=== PATIENT | male | born 1995 | race Caucasian/White ===

== ENCOUNTER 2017-05-27 14:36 | Emergency (ER) | payer MEDICAID ==
[~2017-05-27] VITALS: Wt 98.4 kg
[2017-05-27] MEDS ORDERED: KETOROLAC 30 MG INJ IV STA (15:48)
[2017-05-27] MEDS ORDERED: SOD CHLORIDE 0.9% 1,000 ML IV ONE (16:00)
[2017-05-27] MEDS ORDERED: DEXAMETHASONE 10 MG/ML 1 ML INJ IV ONE (16:00)
[2017-05-27 16:38] LABS: BASOPHILS % 0.2 % (0.0-2.0); EOSINOPHILS % 0.1 % (0.0-7.0); HEMATOCRIT 45.5 % (42.0-52.0); LYMPHOCYTES # 1.1 10^3/ul (0.8-2.9); LYMPHOCYTES % 6.6 % (15.0-51.0); MEAN CORPUSCULAR HEMOGLOBIN 28.1 pg (29.0-33.0); MEAN CORPUSCULAR VOLUME 85.2 fl (82.0-101.0); MONOCYTE # 1.3 10^3/ul (0.3-0.9); MONOCYTES % 8.2 % (0.0-11.0); NEUTROPHIL # 13.6 10^3/ul (1.6-7.5); NEUTROPHILS % 84.6 % (39.0-77.0); PLATELET COUNT 180 10^3/UL (140-415); RED BLOOD COUNT 5.34 10^6/ul (4.70-6.10); RED CELL DISTRIBUTION WIDTH 13.3 % (11.5-14.5)
[2017-05-27 17:11] LABS: CALCIUM 9.6 mg/dl (8.4-10.2); CREATININE 0.86 mg/dl (0.61-1.24); POTASSIUM 4.2 mmol/L (3.5-5.1)
[2017-05-27] MEDS ORDERED: IOHEXOL 300MG/ML 150 ML BTL ONE (17:38)
[2017-05-27] MEDS ORDERED: SOD CHLORIDE 0.9% 100 ML ONE (17:38)
--- NOTE | 2017-05-27 18:06 | RADRPT ---
AMENDMENT: 05/27/2017 6:53:20 PM David Briggs M.d Left peritonsillar abscess measures 2.6 x 2.5 x 1.6 cm. Findings were discussed with the patient's p hysician environmental engineering assistant. PROCEDURE: CT SCAN OF NECK WITH IV CONTRAST CLINICAL INDICATION: Throat pain unable to open mouth TECHNIQUE: Transaxial slices with IV contrast was obtained throughout the neck with IV contrast . A dditional sagittal and coronal reconstruction images were acquired. One of more of the following dos e reduction techniques were utilized: -automatic exposure control.-adjustment of the mA and/or kV ac cording to patient size. -Use of iterative reconstruction technique. Contrast: 100 cc Omnipaque-300 Radiation Dose: CTDI is 9.51 mGy. DLP is 252.08 mGy-cm. COMPARISON: None FINDINGS: S limited slices through the brain demonstrate normal enhancement of the vascular structures in base of brain. Posterior fossa brain stem appears unremarkable. Paranasal sinuses are clear. Prevertebra l soft tissues, nasopharynx is widely patent. Parotid, submandibular glands appear unremarkable. There is abnormal soft tissue density noted in the parapharyngeal space, more so on the left which i s obliterating the fossa of frozen malar. Low density areas noted within the soft tissue thickening suggestive of abscess, image 3 - 34. Thickening of the mucosa in the supraglottic region with low de nsity area suggestive of abscess, image 3 - 50. This is causing significant narrowing of the orophar ynx. Normal enhancement of the carotid arteries, jugular vein is seen with no significant anterior p osterior cervical triangle adenopathy noted. Base of tongue appears unremarkable. Submandibular lymp h nodes are seen. The glottis and infraglottic area appear unremarkable. Normal enhancement of the t hyroid gland and superior mediastinal vascular structures noted. IMPRESSION: Left parapharyngeal with enlarged tonsils bilaterally. RPTAT: AAOO Physician Camilla Date Time Electronically viewed and signed by Physician Camilla on 05/27/2017 18:53 MB/
[2017-05-27] MEDS ORDERED: LIDOCAINE 1%/EPI 30 ML INJ INJ STA (20:34)
[2017-05-27] MEDS ORDERED: CLINDAMYCIN 300 MG/D5W (PMX) 50 ML IVPB SCH (21:30)
[2017-05-27] MEDS ORDERED: CLIN-73 PO (22:13)
[2017-05-27] MEDS ORDERED: IBUP-1542 PO (22:13)
[2017-05-27] MEDS ORDERED: MED4DP PO (22:13)
[2017-05-27 22:25] VITALS: BP 130/75; PULSE 86; RESP 18; TEMP 98.4
--- NOTE | 2017-05-27 22:26 | ERD ---
ER Documentation Chief Complaint Chief Complaint sore throat HPI 21-year-old male patient with no significant past medical history presents to the ED complaining of sore throat that started 3 days ago. Reports that he started to have change in voice and it was difficult for him to open and close his mouth today. Reports that he is still able to drink liquids difficulty chewing and eating solids. He started to get a fever today. Denies any cough, chest pain, shortness of breath, nausea, vomiting, diarrhea, abdominal pain, rashes, neck stiffness. Denies any sick contacts. ROS All systems reviewed and are negative except as per history of present illness. Medications Home Meds Active Scripts Ibuprofen* (Motrin*) 600 Mg Tab, 600 MG PO Q6, #30 TAB Prov:INA HUTSON PA-C 05/27/17 Methylprednisolone* (Medrol* DOSE PACK) 4 Mg/Dose-Pack Tab.ds.pk, 4 MG PO . DIRECTED, #1 PACKET Prov:INA HUTSON PA-C 05/27/17 Clindamycin Hcl* (Clindamycin Hcl*) 300 Mg Capsule, 300 MG PO TID for 7 Days, CAP Prov:INA HUTSON PA-C 05/27/17 Allergies Allergies: Coded Allergies: No Known Allergy (Unverified , 05/27/17) PMhx/Soc Medical and Surgical Hx: pt denies Medical Hx, pt denies Surgical Hx History of Surgery: No Anesthesia Reaction: No Hx Neurological Disorder: No Hx Respiratory Disorders: No Hx Cardiac Disorders: No Hx Psychiatric Problems: No Hx Miscellaneous Medical Probl: No Hx Alcohol Use: No Hx Substance Use: No Hx Tobacco Use: No Smoking Status: Never smoker Physical Exam Vitals Vital Signs Date Time Temp Pulse Resp B/P Pulse Ox O2 Delivery O2 Flow Rate FiO2 05/27/17 14:49 100.6 104 20 129/72 97 Physical Exam Const: Vwo-ghi-zgfjkssji, well-nourished. In no acute distress. Head: Atraumatic, normocephalic Eyes: Normal Conjunctiva without injection. No purulent discharge. PERRL. EOMI ENT: Normal external ear. Ear canal without erythema. Tympanic membrane pearly vora without effusion or bulging. Nasal canal clear with normal turbinates. Moist oropharynx without tonsillar exudates. Non-erythematous pharynx. Uvula midline. No drooling. No trismus. Neck: Full range of motion. No meningismus. No cervical lymphadenopathy. Resp: Clear to auscultation bilaterally. No wheezing, rhonchi, rales, or crackles. No accessory muscle use. No retractions. Cardio: Regular rate and rhythm. No murmurs, rubs or gallops. Abd: Soft, non tender, non distended. Normal bowel sounds. No palpable masses. No rebound tenderness. No guarding. Skin: No petechiae or rashes Back: No midline tenderness. No CVA tenderness. Ext: No cyanosis, or edema. Neur: Awake and alert. Psych: Normal Mood and Affect Results 24 hrs Laboratory Tests Test 05/27/17 16:17 White Blood Count 16.010^3/ul Red Blood Count 5.3410^6/ul Hemoglobin 15.0g/dl Hematocrit 45.5% Mean Corpuscular Volume 85.2fl Mean Corpuscular Hemoglobin 28.1pg Mean Corpuscular Hemoglobin Concent 33.0g/dl Red Cell Distribution Width 13.3% Platelet Count 48218^3/UL Mean Platelet Volume 11.0fl Neutrophils % 84.6% Lymphocytes % 6.6% Monocytes % 8.2% Eosinophils % 0.1% Basophils % 0.2% Nucleated Red Blood Cells % 0.0/100WBC Neutrophils # 13.610^3/ul Lymphocytes # 1.110^3/ul Monocytes # 1.310^3/ul Eosinophils # 0.010^3/ul Basophils # 0.010^3/ul Nucleated Red Blood Cells # 0.010^3/ul Sodium Level 146mmol/L Potassium Level 4.2mmol/L Chloride Level 105mmol/L Carbon Dioxide Level 28mmol/L Anion Gap 17 Blood Urea Nitrogen 12mg/dl Creatinine 0.86mg/dl Glucose Level 105mg/dl Calcium Level 9.6mg/dl Monoscreen Negative Current Medications Medications (Trade) Dose Ordered Sig/Lobo Route PRN Reason Start Time Stop Time Status Last Admin Dose Admin Ketorolac Tromethamine (Toradol) 30 mg ONCE STAT IV 05/27/17 15:48 05/27/17 15:51 DC 05/27/17 16:18 Dexamethasone 10 mg 10 mg ONCE ONCE IV 05/27/17 16:00 05/27/17 16:01 DC 05/27/17 16:18 Sodium Chloride (NS) 1,000 ml @ 1,000 mls/hr Q1H ONCE IV 05/27/17 16:00 05/27/17 16:59 DC 05/27/17 16:18 IV Flush 10 ml 10 ml STK-MED ONCE .ROUTE 05/27/17 17:38 05/27/17 17:39 DC 05/27/17 17:43 Sodium Chloride (NS) 100 ml @ ud STK-MED ONCE .ROUTE 05/27/17 17:38 05/27/17 17:39 DC 05/27/17 17:49 Iohexol (Omnipaque 300mg/ ml) 150 ml STK-MED ONCE .ROUTE 05/27/17 17:38 05/27/17 17:39 DC 05/27/17 17:49 Lidocaine/ Epinephrine 30 ml 30 ml ONCE STAT INJ 05/27/17 20:34 05/27/17 20:35 DC 05/27/17 20:37 Clindamycin HCl/ Dextrose (Cleocin 300 Mg/ D5W (Pmx)) 50 ml @ 100 mls/hr ONCE IVPB 05/27/17 21:30 05/27/17 21:59 DC 05/27/17 21:55 Procedures/MDM 21-year-old male patient with no significant past medical history presents to the ED complaining of throat pain that has worsened today. Patient is afebrile and nontoxic-appearing. Patient has normal vital signs. Patient was further worked up with CBC, MP, CT of the neck with contrast, rapid strep test, monospot. Patient's pain and symptoms have improved after treatment with 30 mg IV Toradol, 10 mg IV Decadron. CBC: Leukocytosis of 16.0. No e/o of systemic infection. No e/o anemia. BMP: No e/o severe acidosis, alkalosis, renal failure, diabetic ketoacidosis Negative monospot Negative rapid strep test. Pending throat culture. AMENDMENT: 05/27/2017 6:53:20 PM David Briggs M.d Left peritonsillar abscess measures 2.6 x 2.5 x 1.6 cm. Findings were discussed with the patient's physician assistant director of public works. PROCEDURE: CT SCAN OF NECK WITH IV CONTRAST CLINICAL INDICATION: Throat pain unable to open mouth TECHNIQUE: Transaxial slices with IV contrast was obtained throughout the neck with IV contrast . Additional sagittal and coronal reconstruction images were acquired. One of more of the following dose reduction techniques were utilized: -automatic exposure control.-adjustment of the mA and/or kV according to patient size. -Use of iterative reconstruction technique. Contrast: 100 cc Omnipaque-300 Radiation Dose: CTDI is 9.51 mGy. DLP is 252.08 mGy-cm. COMPARISON: None FINDINGS: S limited slices through the brain demonstrate normal enhancement of the vascular structures in base of brain. Posterior fossa brain stem appears unremarkable. Paranasal sinuses are clear. Prevertebral soft tissues, nasopharynx is widely patent. Parotid, submandibular glands appear unremarkable. There is abnormal soft tissue density noted in the parapharyngeal space, more so on the left which is obliterating the fossa of frozen malar. Low density areas noted within the soft tissue thickening suggestive of abscess, image 3 - 34. Thickening of the mucosa in the supraglottic region with low density area suggestive of abscess, image 3 - 50. This is causing significant narrowing of the oropharynx. Normal enhancement of the carotid arteries, jugular vein is seen with no significant anterior posterior cervical triangle adenopathy noted. Base of tongue appears unremarkable. Submandibular lymph nodes are seen. The glottis and infraglottic area appear unremarkable. Normal enhancement of the thyroid gland and superior mediastinal vascular structures noted. IMPRESSION: Left parapharyngeal with enlarged tonsils bilaterally. Patient was noted to have a left peritonsillar abscess. This case discussed with my supervising physician, Dr. Reyes we both agreed to consult the ears nose throat specialist, Dr. Orozco. Dr. Orozco performed an incision and drainage of the left peritonsillar abscess. No complications after the procedure. Patient was also given clindamycin 300 mg IV here in the ED. Patient's physical exam include lungs which were clear to auscultation and a normal pulse oximetry. Bilateral ears pearly elena. No tenderness to palpation of tragus or mastoid. Low suspicion for mastoiditis, otitis externa, otitis media. Patient is speaking in full sentences. There is a low suspicion for pneumonia, epiglottitis, sinusitis, Lance's agnina, retropharyngeal abscess, meningitis, sepsis, acute abdomen or other emergent conditions. We all agreed that patient could be managed on an outpatient basis. Discharge medications: Ibuprofen, Medrol Dose Pack, Clindamycin Follow up with primary care physician in 1-2 days for referral to an ears nose throat specialist. Instructed patient to return to the ED sooner for any worsening symptoms. Patient's questions were answered. Patient understood and agreed with discharge plan. Patient discharged stable. Departure Diagnosis: Primary Impression: Peritonsillar abscess Condition: Stable Patient Instructions: Peritonsillar Abscess Referrals: ENDER OROZCO MD [facility] YOU HAVE RECEIVED A MEDICAL SCREENING EXAM AND THE RESULTS INDICATE THAT YOU DO NOT HAVE A CONDITION THAT REQUIRES URGENT TREATMENT IN THE EMERGENCY DEPARTMENT. FURTHER EVALUATION AND TREATMENT OF YOUR CONDITION CAN WAIT UNTIL YOU ARE SEEN IN YOUR DOCTORS OFFICE WITHIN THE NEXT 1-2 DAYS. IT IS YOUR RESPONSIBILITY TO MAKE AN APPOINTMENT FOR FOLOW-UP CARE. IF YOU HAVE A PRIMARY DOCTOR --you should call your primary doctor and schedule an appointment IF YOU DO NOT HAVE A PRIMARY DOCTOR YOU CAN CALL OUR PHYSICIAN REFERRAL HOTLINE AT IF YOU CAN NOT AFFORD TO SEE A PHYSICIAN YOU CAN CHOSE FROM THE FOLLOWING [facility][1] [address] [facility]. [facility] [address] [facility] [facility] [address] [facility] [facility] [address] [facility] [address] [facility]. [facility]. [address] [facility]. [facility] YOU HAVE RECEIVED A MEDICAL SCREENING EXAM AND THE RESULTS INDICATE THAT YOU DO NOT HAVE A CONDITION THAT REQUIRES URGENT TREATMENT IN THE EMERGENCY DEPARTMENT. FURTHER EVALUATION AND TREATMENT OF YOUR CONDITION CAN WAIT UNTIL YOU ARE SEEN IN YOUR DOCTORS OFFICE WITHIN THE NEXT 1-2 DAYS. IT IS YOUR RESPONSIBILITY TO MAKE AN APPOINTMENT FOR FOLOW-UP CARE. IF YOU HAVE A PRIMARY DOCTOR --you should call your primary doctor and schedule and appointment IF YOU DO NOT HAVE A PRIMARY DOCTOR YOU CAN CALL OUR PHYSICIAN REFERRAL HOTLINE AT . IF YOU CAN NOT AFFORD TO SEE A PHYSICIAN YOU CAN CHOSE FROM THE FOLLOWING [facility] INSTITUTIONS: [facility] [address] [place] [address] [facility] [address] [place] [address] [facility] [address] [place] [address] [facility] URGENT CARE/SPECIALTIES Additional Instructions: Call your primary care doctor TOMORROW for an appointment during the next 1-2 days for a referrral to see an ears nose throat specialist doctor.See the doctor sooner or return here if your condition worsens before your appointment time. INA HUTSON PA-C May 27, 2017 22:26 INA HUTSON PA-C May 27, 2017 22:26
== END 2017-05-27 22:25 | disposition home or self-care (01) ==
LOC: FTE 14:36
DX: J36 Peritonsillar abscess (principal)
CPT/HCPCS: 36415; 42700; 70491; 80048; 85025; 86308; 87880; 96374; 96375; J1100; J1885; J7030; Q9967; S0077; Z7502; Z7610